=== PATIENT | female | born 1980 | race Caucasian/White ===

== ENCOUNTER 2021-08-08 07:50 | Inpatient (IN) ==
[2021-08-08] MEDS ORDERED: ONDANSETRON 4 MG/2 ML VIAL IV PRN ×2 (08:24→20:35)
[2021-08-08] MEDS ORDERED: OXYTOCIN/LR 20 UNIT/1,000 ML BAG IV PRN (08:24)
[2021-08-08] MEDS ORDERED: MEPERIDINE 50 MG/1 ML VIAL IV PRN (08:24)
[2021-08-08] MEDS: LACTATED RINGERS 1,000 ML IV PRN ×2 (08:42→12:22)
[2021-08-08 08:53] LABS: Basophils % 0.3 % (0.0-0.8); Eosinophils # 0.1 10*3/uL (0.0-0.87); Eosinophils % 1.1 % (0.00-10.9); Hematocrit 34.5 VOL% (35.7-47.0); Hemoglobin 11.5 GM/DL (12.0-16.0); Immature Granulocytes % 0.8 %; Immature Granulocytes Absolute 0.09 #; Lymphocytes # 2.2 10*3/uL (1.4-4.0); Lymphocytes % 18.5 % (21.3-54.2); Mean Corpuscular HGB Conc 33.3 GM/DL (32-36); Mean Corpuscular Volume 87.8 FL (87-102); Mean Platelet Volume 10.8 FL (9.6-12.0); Monocytes % 5.6 % (1.7-12.7); Neutrophils % 73.7 % (38.7-73.9); Platelet Count 283 T/CUMM (130-400); Red Blood Count 3.93 MC/CUMM (3.8-5.5); Red Cell Distribution Width 13.3 % (9.3-17.3); White Blood Count 11.7 T/CUMM (4-12)
[2021-08-08 09:17] LABS: Alanine Aminotransferase 10 U/L (13-56); Albumin 2.7 G/DL (3.4-5.0); Alkaline Phosphatase 149 U/L (45-117); Aspartate Amino Transferase 12 U/L (0-37); Bilirubin,Total < 0.39 MG/DL (0.20-1.00); Blood Urea Nitrogen 10 MG/DL (7-18); Calcium 9.1 MG/DL (8.5-10.1); Carbon Dioxide 22 MMOL/L (21-32); Estimated Glom Filtration Rate 94 ML/MIN; Glucose 83 MG/DL (74-106); Osmolality,Calculated 270.8 MOS/KG (273-304); Potassium 3.7 MMOL/L (3.5-5.1); Sodium 137 MMOL/L (136-145); Total Protein 7.2 G/DL (6.4-8.2)
[2021-08-08 09:27] LABS: INR 0.9; PT Patient Result 9.8 SECS (10.5-12.0); Partial Thromboplastin Time 26.1 SECS (23.8-32.1)
[2021-08-08] MEDS ORDERED: hydrOXYzine HCL 25 MG/1 ML VIAL IM PRN (11:58)
[2021-08-08] MEDS ORDERED: FAMOTIDINE 20 MG/2 ML VIAL IV ONE (11:58)
[2021-08-08] MEDS ORDERED: ONDANSETRON 4 MG/2 ML VIAL IV ONE (11:58)
[2021-08-08] MEDS ORDERED: CITRIC ACID/SODIUM CITRATE 30 ML UDCUP PO ONE (11:58)
[2021-08-08] MEDS ORDERED: PROMETHAZINE 25 MG/1 ML VIAL IM ONE (11:58)
[2021-08-08] MEDS ORDERED: NALOXONE 0.4 MG/ML VIAL IV PRN (11:58)
[2021-08-08] MEDS ORDERED: diphenhydrAMINE 50 MG/1 ML VIAL IV PRN ×2 (11:58)
[2021-08-08] MEDS ORDERED: fentaNYL 2 MCG/ROPIV 0.2% EPID 100 ML EPIDURAL SCH (12:00)
[2021-08-08] MEDS: ePHEDrine 50 MG/ML VIAL IV PRN ×2 (14:08→14:12)
[2021-08-08 14:10] LABS: Bilirubin,Urine Negative (Negative); Blood, Urine Small mg/dL (Negative); Glucose,Urine (UA) Negative (Negative); Ketones,Urine Negative (Negative); Mucus,Urine Occasional /LPF (Occasional); Nitrite,Urine Negative (Negative); Protein,Urine Negative; RBC,Urine 3 /HPF (0-4); Urine Appearance CLEAR (Clear); Urine Color Straw (Yellow); Urine Specific Gravity 1.005 (1.001-1.035); Urine Urobilinogen < 2.0 EU/DL (0.2-1.0)
[2021-08-08] MEDS ORDERED: miSOPROStoL 200 MCG TABLET ONE (17:05)
[2021-08-08] MEDS ORDERED: CARBOPROST TROMETHAMINE 250 MCG/ML AMP IM ONE (17:06)
[2021-08-08] MEDS ORDERED: SODIUM CHLORIDE 0.9% 0 ML IV ONE (17:06)
[2021-08-08] MEDS ORDERED: METHYLERGONOVINE 0.2 MG/1 ML AMP ONE (17:06)
[2021-08-08] MEDS ORDERED: TRANEXAMIC ACID 1,000 MG/10 ML VIAL ONE (17:06)
[2021-08-08 18:05] LABS: Cord Arterial Blood HCO3 21.5 MMOL/L
[2021-08-08 18:08] LABS: Cord Venous Blood HCO3 23.5 MMOL/L; Cord Venous Blood PCO2 44.7 MMHG; Cord Venous Blood PO2 32.4
[2021-08-08] MEDS ORDERED: OXYTOCIN/LR 20 UNIT/1,000 ML BAG IV ONE (20:35)
[2021-08-08] MEDS ORDERED: WITCH HAZEL PADS 100/JAR TOP PRN (20:35)
[2021-08-08] MEDS ORDERED: ACETAMINOPHEN 325 MG TABLET PO PRN (20:35)
[2021-08-08] MEDS ORDERED: DIPH/TET/ACEL PERT BOOSTER VACCINE 0.5 ML VIAL IM ONE (20:35)
[2021-08-08] MEDS ORDERED: HYDROCORTISONE 2.5% RECTAL CREAM 30 GM TUBE TOP PRN (20:35)
[2021-08-08] MEDS ORDERED: oxyCODONE/ACETAMINOPHEN 5-325 MG TABLET PO PRN ×2 (20:35)
[2021-08-08] MEDS ORDERED: LANOLIN 50% CREAM 0.3 OZ TUBE TOP PRN (20:35)
[2021-08-08] MEDS ORDERED: BENZOCAINE 20%/MENTHOL 0.5% SPRAY 56 GM CAN TOP PRN (20:35)
[2021-08-08] MEDS ORDERED: RHO(D) IMMUNE GLOBULIN 300 MCG SYRINGE IM ONE (20:35)
[2021-08-08] MEDS ORDERED: BISACODYL 10 MG SUPP RECTAL PRN (20:35)
[2021-08-08] MEDS ORDERED: MEASLES/MUMPS/RUBELLA VACCINE 0.5 ML VIAL SUBCUT ONE (20:35)
[2021-08-08] MEDS: DOCUSATE SODIUM 100 MG CAPSULE PO SCH (21:48)
[2021-08-08] MEDS: IBUPROFEN 800 MG TABLET PO PRN (23:29)
[2021-08-09 06:03] LABS: Basophils % 0.2 % (0.0-0.8); Eosinophils # 0.1 10*3/uL (0.0-0.87); Hematocrit 31.1 VOL% (35.7-47.0); Hemoglobin 10.3 GM/DL (12.0-16.0); Immature Granulocytes % 0.6 %; Immature Granulocytes Absolute 0.08 #; Lymphocytes # 2.4 10*3/uL (1.4-4.0); Mean Corpuscular HGB Conc 33.1 GM/DL (32-36); Mean Corpuscular Volume 89.6 FL (87-102); Monocytes % 4.8 % (1.7-12.7); Neutrophils % 75.4 % (38.7-73.9); Platelet Count 247 T/CUMM (130-400); Red Blood Count 3.47 MC/CUMM (3.8-5.5); Red Cell Distribution Width 13.3 % (9.3-17.3); White Blood Count 13.3 T/CUMM (4-12)
[2021-08-09 06:29] LABS: Hypochromasia 1+; Lymphocytes 15 % (20-55); Microcytosis 1+; Platelet Estimate Adequate; Segmented Neutrophils 81 % (50-85); Total Cells Counted 100
[2021-08-09] MEDS: DOCUSATE SODIUM 100 MG CAPSULE PO SCH ×2 (09:04→22:03)
[2021-08-09] MEDS: IBUPROFEN 800 MG TABLET PO PRN ×2 (14:02→23:45)
[2021-08-09] MEDS ORDERED: ENOXAPARIN 40 MG/0.4 ML SYRINGE SUBCUT SCH (15:00)
[2021-08-10] MEDS ORDERED: ALUMINUM/MAGNES/SIMETH MAX STR 30 ML UDCUP PO PRN (01:40)
[2021-08-10 09:20] VITALS: BP 97/62
== END 2021-08-10 11:55 | disposition home or self-care (01) | DRG 806 ==
LOC: N.LD 07:50 → N.OB 21:47
PROVIDERS: ADMIT Obstetrics & Gynecology; ATTEND Obstetrics & Gynecology